=== PATIENT | female | born 1990 | race Two or more races ===

== ENCOUNTER 2019-01-08 23:47 | Emergency (ER) | payer OTHER ==
[~2019-01-08] VITALS: Ht 167.6 cm; Wt 79.4 kg
[2019-01-08] MEDS ORDERED: CLONAZEPAM0.5 MG (23:57)
[2019-01-09] MEDS ORDERED: PEPCID40 MG PO (08:05)
[2019-01-09] MEDS ORDERED: ZOFRAN4 MG PO (08:05)
[2019-01-09] MEDS ORDERED: CIPRO500 MG PO (08:05)
== END 2019-01-09 08:17 | disposition home or self-care (01) ==
LOC: ER 23:47
DX: K52.9 Noninfective gastroenteritis and colitis, unspecified (principal)

== ENCOUNTER 2019-12-12 20:17 | Emergency (ER) | payer OTHER ==
[~2019-12-12] VITALS: Ht 170.2 cm; Wt 74.8 kg
[~2019-12-12 20:17] MED LIST: CIPRO500 MG PO; CLONAZEPAM0.5 MG; PEPCID40 MG PO; ZOFRAN4 MG PO
== END 2019-12-12 22:36 | disposition home or self-care (01) ==
LOC: ER 20:17
DX: N30.80 Other cystitis without hematuria (principal)